=== PATIENT | female | born 1945 | race Native Hawaiian/Other Pacific Islander ===

== ENCOUNTER 2016-07-15 15:34 | Emergency (ER) | payer OTHER ==
[~2016-07-15] VITALS: Ht 154.9 cm; Wt 83.5 kg
[~2016-07-15 15:34] MED LIST: JANUVIA100 MG PO; LEVO0.0529 PO; METF500T PO; ROSU10TA PO; ZIAC PO
[2016-07-15 16:23] LABS: PLATELET COUNT 180 K/uL (152-353)
[2016-07-15 16:26] LABS: POTASSIUM 3.9 mmol/L (3.6-5.2)
[2016-07-15 16:36] LABS: PARTIAL THROMBOPLASTIN TIME 23.7 SECONDS (24.5-33.6)
[2016-07-15 18:08] VITALS: BP 163/80; TEMP 97.8
== END 2016-07-15 18:12 | disposition short-term general hospital (02) ==
LOC: ED 15:34
PROVIDERS: Specialist
DX: I21.19 ST elevation (STEMI) myocardial infarction involving other coronary artery of inferior wall (principal); I10 Essential (primary) hypertension
CPT/HCPCS: 36415; 80048; 82550; 82553; 83735; 84100; 84484; 85027; 85610; 85730; 93005; 96365; 96375; 99285; J1644

== ENCOUNTER 2016-07-15 18:18 | Outpatient (CLI) | payer OTHER | END 2016-07-15 18:52 | disposition short-term general hospital (02) | LOC: AMB 18:18 | DX: I21.19 ST elevation (STEMI) myocardial infarction involving other coronary artery of inferior wall (principal); I10 Essential (primary) hypertension | CPT/HCPCS: A0425; A0427 ==

== ENCOUNTER 2016-08-08 12:18 | Outpatient (CLI) | payer OTHER ==
[2016-08-08 12:39] LABS: PLATELET COUNT 171 K/uL (152-353)
[2016-08-08 12:59] LABS: POTASSIUM 4.1 mmol/L (3.6-5.2)
== END 2016-08-08 19:30 | disposition home or self-care (01) ==
LOC: LAB 12:18
PROVIDERS: Nurse Practitioner Family
DX: E11.9 Type 2 diabetes mellitus without complications (principal); E78.4 Other hyperlipidemia; I10 Essential (primary) hypertension; E03.8 Other specified hypothyroidism; Z79.899 Other long term (current) drug therapy; Z51.81 Encounter for therapeutic drug level monitoring
CPT/HCPCS: 80053; 80061; 83036; 84439; 84443; 85027

== ENCOUNTER 2016-11-18 13:23 | Outpatient (CLI) | payer OTHER ==
[2016-11-18 13:58] LABS: PLATELET COUNT 187 K/uL (152-353)
[2016-11-18 14:11] LABS: POTASSIUM 4.2 mmol/L (3.6-5.2)
== END 2016-11-18 19:31 | disposition home or self-care (01) ==
LOC: LAB 13:23
PROVIDERS: Nurse Practitioner Family
DX: I10 Essential (primary) hypertension (principal); E78.4 Other hyperlipidemia; E03.8 Other specified hypothyroidism; E11.9 Type 2 diabetes mellitus without complications; R53.83 Other fatigue; R53.81 Other malaise; Z79.899 Other long term (current) drug therapy; E55.9 Vitamin D deficiency, unspecified; Z51.81 Encounter for therapeutic drug level monitoring
CPT/HCPCS: 80053; 80061; 82306; 82607; 83036; 84436; 84443; 85027

== ENCOUNTER 2017-03-16 11:34 | Outpatient (CLI) | payer OTHER ==
[2017-03-16 12:57] LABS: POTASSIUM 3.8 mmol/L (3.6-5.2)
== END 2017-03-16 19:04 | disposition home or self-care (01) ==
LOC: LAB 11:34
PROVIDERS: Nurse Practitioner Family
DX: R79.89 Other specified abnormal findings of blood chemistry (principal)
CPT/HCPCS: 80053; 80061

== ENCOUNTER 2017-04-08 13:29 | Outpatient (CLI) | payer OTHER ==
[2017-04-08 14:03] LABS: PLATELET COUNT 178 K/uL (152-353)
[2017-04-08 14:14] LABS: PARTIAL THROMBOPLASTIN TIME 22.9 SECONDS (24.5-33.6)
[2017-04-08 14:23] LABS: POTASSIUM 3.9 mmol/L (3.6-5.2)
== END 2017-04-08 19:47 | disposition home or self-care (01) ==
LOC: LAB 13:29
PROVIDERS: Nurse Practitioner Family
DX: E78.4 Other hyperlipidemia (principal); E03.8 Other specified hypothyroidism; E11.9 Type 2 diabetes mellitus without complications; I10 Essential (primary) hypertension; R53.83 Other fatigue; R53.81 Other malaise; Z79.899 Other long term (current) drug therapy; Z51.81 Encounter for therapeutic drug level monitoring
CPT/HCPCS: 80053; 85027; 85610; 85730

== ENCOUNTER 2017-07-23 13:53 | Outpatient (CLI) | payer OTHER ==
[2017-07-23 14:11] LABS: PLATELET COUNT 163 K/uL (152-353)
== END 2017-07-23 19:22 | disposition home or self-care (01) ==
LOC: LAB 13:53
PROVIDERS: Nurse Practitioner Family
DX: E78.4 Other hyperlipidemia (principal); E03.8 Other specified hypothyroidism; E11.9 Type 2 diabetes mellitus without complications; I10 Essential (primary) hypertension; R53.83 Other fatigue; Z79.899 Other long term (current) drug therapy; Z51.81 Encounter for therapeutic drug level monitoring
CPT/HCPCS: 80053; 80061; 83036; 84436; 84443; 85027

== ENCOUNTER 2017-12-07 10:07 | Outpatient (CLI) | payer OTHER | END 2017-12-07 22:36 | disposition home or self-care (01) | LOC: RAD 10:07 | DX: M79.675 Pain in left toe(s) (principal); M79.674 Pain in right toe(s) ==

== ENCOUNTER 2019-02-07 14:51 | Outpatient (CLI) | payer OTHER | END 2019-02-07 17:00 | disposition home or self-care (01) | LOC: RAD 14:51 | DX: R05 Cough (principal) ==

== ENCOUNTER 2019-03-21 10:49 | Outpatient (CLI) | payer OTHER | END 2019-03-21 19:47 | disposition home or self-care (01) | LOC: RAD 10:49 | DX: R06.02 Shortness of breath (principal) ==

== ENCOUNTER 2019-09-02 11:57 | Outpatient (CLI) | payer OTHER, MEDICARE ==
[2019-09-02 12:19] LABS: PLATELET COUNT 198 K/uL (152-353)
[2019-09-02 12:38] LABS: POTASSIUM 4.1 mmol/L (3.6-5.2)
== END 2019-09-02 20:14 | disposition home or self-care (01) ==
LOC: LABW 11:57
PROVIDERS: Internal Medicine
DX: E11.22 Type 2 diabetes mellitus with diabetic chronic kidney disease (principal); N18.4 Chronic kidney disease, stage 4 (severe); E03.8 Other specified hypothyroidism; R82.998 Other abnormal findings in urine
CPT/HCPCS: 36415; 80053; 81000; 82306; 82330; 82570; 83036; 83735; 83970; 84100; 84155; 84439; 84443; 85027; 87077; 87086; 87088; 87186

== ENCOUNTER → 2020-01-30 | Emergency (ER) | payer OTHER | LOC: ED 11:05 | DX: R05 Cough (principal) | CPT/HCPCS: 99281 ==

== ENCOUNTER 2020-03-16 20:35 | Emergency (ER) | payer OTHER ==
[~2020-03-16] VITALS: Ht 154.9 cm; Wt 83.5 kg
[2020-03-16 20:50] VITALS: BP 168/59; TEMP 98.9
[2020-03-16 22:36] LABS: PLATELET COUNT 180 K/uL (152-353)
[2020-03-16 22:46] LABS: POTASSIUM 3.8 mmol/L (3.6-5.2)
[2020-03-16 22:54] LABS: PARTIAL THROMBOPLASTIN TIME 23.6 SECONDS (24.5-33.6)
== END 2020-03-17 00:48 | disposition home or self-care (01) ==
LOC: ED 20:35
PROVIDERS: Family Medicine
DX: I73.89 Other specified peripheral vascular diseases (principal); E11.42 Type 2 diabetes mellitus with diabetic polyneuropathy; Z79.84 Long term (current) use of oral hypoglycemic drugs
CPT/HCPCS: 36415; 80053; 81000; 85027; 85379; 85610; 85730; 99283

== ENCOUNTER 2020-08-08 08:03 | Outpatient (CLI) | payer OTHER ==
[2020-08-08 08:37] LABS: PLATELET COUNT 184 K/uL (152-353)
[2020-08-08 09:20] LABS: POTASSIUM 3.5 mmol/L (3.6-5.2)
== END 2020-08-08 20:51 | disposition home or self-care (01) ==
LOC: LABW 08:03
PROVIDERS: ATTEND Internal Medicine
DX: I12.9 Hypertensive chronic kidney disease with stage 1 through stage 4 chronic kidney disease, or unspecified chronic kidney disease (principal); E66.9 Obesity, unspecified; G47.30 Sleep apnea, unspecified; E11.65 Type 2 diabetes mellitus with hyperglycemia; I25.2 Old myocardial infarction; I25.10 Atherosclerotic heart disease of native coronary artery without angina pectoris; N18.4 Chronic kidney disease, stage 4 (severe); E11.22 Type 2 diabetes mellitus with diabetic chronic kidney disease; E03.8 Other specified hypothyroidism
CPT/HCPCS: 36415; 80053; 80061; 81000; 82306; 82330; 82570; 83036; 83735; 83970; 84100; 84155; 84439; 84443; 85027

== ENCOUNTER 2020-08-15 09:02 | Outpatient (CLI) | payer OTHER | END 2020-08-15 19:32 | disposition home or self-care (01) | LOC: US 09:02 | PROVIDERS: ATTEND Nurse Practitioner Family | DX: R10.11 Right upper quadrant pain (principal) ==

== ENCOUNTER 2020-08-16 10:54 | Outpatient (CLI) | payer OTHER ==
[2020-08-16 11:19] LABS: PLATELET COUNT 212 K/uL (152-353)
[2020-08-16 11:49] LABS: POTASSIUM 4.5 mmol/L (3.6-5.2)
== END 2020-08-16 20:07 | disposition home or self-care (01) ==
LOC: LABW 10:54
PROVIDERS: ATTEND Nurse Practitioner Family
DX: R10.11 Right upper quadrant pain (principal)
CPT/HCPCS: 36415; 80053; 81000; 82150; 83690; 85027; 87086; 87088

== ENCOUNTER 2020-08-29 07:55 | Outpatient (CLI) | payer OTHER | END 2020-08-29 19:28 | disposition home or self-care (01) | LOC: NM 07:55 | PROVIDERS: ATTEND Nurse Practitioner Family | DX: R10.11 Right upper quadrant pain (principal); R11.2 Nausea with vomiting, unspecified | CPT/HCPCS: A9537 ==

== ENCOUNTER 2021-05-28 08:21 | Outpatient (CLI) | payer OTHER ==
[2021-05-28 08:40] LABS: PLATELET COUNT 176 K/uL (152-353)
[2021-05-28 09:02] LABS: POTASSIUM 4.4 mmol/L (3.6-5.2)
== END 2021-05-28 18:55 | disposition home or self-care (01) ==
LOC: LABW 08:21
PROVIDERS: ATTEND Internal Medicine Cardiovascular Disease
DX: E78.49 Other hyperlipidemia (principal); I10 Essential (primary) hypertension; I25.10 Atherosclerotic heart disease of native coronary artery without angina pectoris
CPT/HCPCS: 36415; 80048; 85027

== ENCOUNTER 2021-06-09 14:06 | Emergency (ER) | payer OTHER ==
[~2021-06-09] VITALS: Ht 154.9 cm; Wt 81.6 kg
[2021-06-09 14:06] VITALS: TEMP 96.4
[2021-06-09 14:31] LABS: PLATELET COUNT 236 K/uL (152-353)
[2021-06-09 14:47] LABS: POTASSIUM 3.7 mmol/L (3.6-5.2)
[2021-06-09 14:50] LABS: PARTIAL THROMBOPLASTIN TIME 21.6 SECONDS (24.5-33.6)
[2021-06-09 18:20] VITALS: BP 82/40
== END 2021-06-09 20:36 | disposition short-term general hospital (02) ==
LOC: ED 14:06
PROVIDERS: Emergency Medicine Emergency Medical Services
PROC: 5A1221J Performance of Cardiac Output, Continuous, Automated (ICD-10-PCS; principal; 2021-06-09)
PROC: 0BH17EZ Insertion of Endotracheal Airway into Trachea, Via Natural or Artificial Opening (ICD-10-PCS; 2021-06-09)
DX: I46.9 Cardiac arrest, cause unspecified (principal); Z98.890 Other specified postprocedural states; Z11.52 Encounter for screening for COVID-19
CPT/HCPCS: 31500; 36415; 80053; 84484; 85027; 85610; 85730; 87635; 92950; 93005; 96360; 96365; 96366; 96375; 99285; J0171; J0282; J0461; J2270; J2405; J3490; U0003